=== PATIENT | male | born 1970 | race Caucasian/White ===

== ENCOUNTER 2019-05-31 06:35 | Observation (INO) ==
--- NOTE | 2019-05-31 07:46 | History & Physical Bridge Note ---
Date of Service May 31, 2019 History & Physical Bridge Note I have examined the patient, reviewed the History & Physical and in the interval since the performance of the History & Physical I have noted the following changes of clinical significance: no changes noted I have explained the risk benefit and intent of the procedure to the patient and he is agreeable to proceed.
--- NOTE | 2019-05-31 07:52 | Anesthesiology Consultation ---
Date of Service May 31, 2019 History Surgery Operation Date: 05/31/19 08:00 Proposed Procedures p Left Heart Catheterization - Celso White, Height/Weight Height: 5 ft 10 in Weight: 116.7 kg Allergies Allergy/AdvReac Type Severity Reaction Status Date / Time No Known Allergies Allergy Unverified 05/31/19 06:41 Medications Home Medications Medication Instructions Recorded Confirmed Last Taken citalopram [Celexa] 40 mg PO DAILY 05/31/19 05/31/19 Unknown ketoconazole 1 applic TOPICAL BID 05/31/19 05/31/19 Unknown lisinopril-hydrochlorothiazide 1 tab PO DAILY 05/31/19 05/31/19 Unknown Social History Smoking Status: Former smoker Hx Alcohol Use: Yes Alcohol type: beer alcohol intake frequency: a few times a week Hx Substance Use: No substance use type: does not use Physical Exam Vital Signs Last Vital Signs Temp 36.9 C 05/31/19 07:05 Pulse 59 L 05/31/19 07:05 Resp 16 05/31/19 07:05 BP 122/79 05/31/19 07:05 Pulse Ox 96 05/31/19 07:05 General: no acute distress and stated age Head: normocephalic, no masses, lesions, tenderness or abnormalities Eyes: conjunctiva are pink and non-injected, sclera clear Neck: supple, no adenopathy, no bruits, normal jugular venous pulse, no hepatojugular reflux Chest: normal shape and normal respiratory effort Lungs: clear to auscultation and percussion Cardiac Exam: - regular rate & rhythm, no murmurs gallops or rubs - normal S1, normal S2 Pulses: 2(+) throughout Abdomen: abdomen soft, non-tender, no abnormal masses and no hepatosplenomegaly Musculoskeletal: no gait disturbance, no joint inflammation, no deforming arthritis Extremities: no edema and no cyanosis Neuro: grossly normal exam Testing Electrocardiogram Findings: + NSR @ Chest X-Ray Findings: + NAD
[2019-05-31] MEDS ORDERED: NiCARDipine HCL INJ 2.5 MG/ML 10 ML AMP ONE (07:58)
[2019-05-31] MEDS ORDERED: HEPARIN (PORCINE) 1000 UNIT/ML 10 ML (CATH LAB USE ONLY) ONE ×2 (07:58→09:20)
[2019-05-31] MEDS ORDERED: fentaNYL citrate 100 MCG/2 ML VIAL ONE (07:58)
[2019-05-31] MEDS ORDERED: MIDAZOLAM HCL 1 MG/ML 2ML VIAL ONE ×2 (07:59→08:27)
[2019-05-31] MEDS ORDERED: SODIUM CHLORIDE 0.9% 1000ML 1,000 ML IV SCH ×2 (08:00→10:15)
[2019-05-31] MEDS ORDERED: NITROGLYCERIN/D5W 100MCG/ML 20ML SYR ONE (08:00)
--- NOTE | 2019-05-31 08:51 | Cardiac Catheterization ---
Date of Service May 31, 2019 Cardiac Cath Report Cardiac Cath Report Procedure: 1. Left heart catheterization 2. Coronary angiography 3. Left ventriculogram History: This is a 48-year-old male patient with a history of neck and chest discomfort who underwent an exercise stress echocardiogram. The stress echocardiogram portion study was negative but the EKG portion of the study showed significant ST segment depressions suggesting ischemia. The patient was referred for heart catheterization. Procedure summary: After informed consent was obtained the patient was taken to the cardiac catheterization lab where he was prepped and draped in the usual manner for a right transradial approach. Preformed 5 [place] diagnostic catheters were utilized for the coronary angiograms. A 5 [place] pigtail catheter was utilized for the left ventriculogram and left heart pressures. Following the procedure the patient underwent coronary intervention and was admitted in stable condition. ACC data: Start time 8:07 AM End time 8:30 AM Opening aortic pressure 98/69 Closing aortic pressure 101/75 Left ventricular pressure 103/4 Sedation 2 mg intravenous Versed IV fluid 49 cc normal saline Contrast Optiray 80 cc Fluoroscopy time 2.9 minutes Radiation 1071 mGy DAP 10,391 milligrays per meter squared AUC score 9 Right dominant system Coronary angiography: Selective injections of the left coronary artery revealed the left main trunk to be widely patent. The left circumflex artery consist mainly of a large lateral marginal branch which is widely patent. In the proximal segment of the LAD there is a long area of 80% stenoses and then a 50 to 60% eccentric stenosis in the distal mid LAD. Selective injections of the right coronary artery revealed to be dominant. The right coronary artery is widely patent. Left ventriculogram: The left ventricle is of normal size with normal systolic function. The mitral valve is competent. The aortic root and ascending aorta have normal morphology. Summary: The patient has single-vessel coronary artery disease with a long 80% stenosis of the proximal LAD and then in the mid to distal portion of the LAD of 50 to 60% stenoses. The remainder the LAD is patent. The left circumflex and right coronary arteries are widely patent. Recommendations: Recommendations are for review by interventional cardiology for stent placement.
[2019-05-31] MEDS ORDERED: CLOPIDOGREL BISULFATE 300 MG TAB ONE (09:22)
[2019-05-31] MEDS ORDERED: ADENOSINE IV SOLN 3 MG/ML 20 ML VIAL IV ONE (09:30)
[2019-05-31] MEDS ORDERED: NITROGLYCERIN SL 0.4 MG/TAB TAB SL PRN (10:04)
[2019-05-31] MEDS ORDERED: ONDANSETRON INJ 2 MG/ML 2 ML VIAL IV PRN (10:04)
[2019-05-31] MEDS ORDERED: ACETAMINOPHEN 325 MG TAB PO PRN (10:04)
--- NOTE | 2019-05-31 10:10 | Post Anesthesia Assessment ---
Date of Service May 31, 2019 Post Sedation Assessment Vital Signs Temp Pulse Resp BP Pulse Ox 05/31/19 10:00 54 L 16 126/93 97 05/31/19 07:05 98.4 F 59 L 16 122/79 96 Recovery Score Activity: Moves 4 extremities Respiration: Deep Breath/Cough Circulation: +/-20% PreAnes Value Consciousness: Fully Awake Oxygen Saturation: > 92% On Room Air Post Anesthesia Score: 10 Discharge Sedation Level of Care: Fast Track Phase II Post Sedation Plan On clinical assessment, the patient appears to have tolerated the sedation without complications. Patient is recovering as anticipated. Patient will continue to be monitored by nursing and may be discharged when sedation discharge criteria are met per below protocol. Upon Completions of procedure up to 15 minutes continue every 5 minute vital signs and the P.A.R. score; then discharge to a Phase I or Fast Track to Phase II per the following guidelines: * Discharge Patient to appropriate Phase II area if PAR is 8 or greater or retu rn to pre- procedure baseline. The post - procedure orders will be as directed. * If PAR score is less than 8 or not return to pre-procedure baseline then patient will follow Phase I monitoring till PAR is reached for Phase II. The Phase I may be done in procedure room or may call to secure a Phase I area. * If naloxone or flumazenil are used for reversal, hold in Phase I for continued monitoring from when last reversal dose was given for a minimum of 60 minutes or longer pending the nurse and/or physician discretion of patient condition before discharge to Phase II. Please call the Sedation Physician to re-evaluate and complete post-note for discharge to Phase II area. Do NOT discharge from procedure sedation or Phase 1 until post- sedation evaluation note is complete by procedure /sedation MD Sedation Discharge Instructions to be given to the patient at discharge to home.
--- NOTE | 2019-05-31 10:19 | Cardiac Catheterization ---
ACC Data: Bolt Sorter Cardiac Status Clinical evaluation leading to the procedure CAD Presenation: Positive Stress Test Anginal Classification: CCS III Heart Failure: No Cardiogenic Shock within 24 Hours: No Cardiac Arrest within 24 Hours: No Imaging Studies Past 6 Months: Yes Stress Studies Past 6 Months: Yes Stress Echocardiogram: Yes - Indeterminant Diagnostic Physicians Name: Carlos Diane MD Closure Device Percutaneous Entry Location: Radial Closure Device: Radial Band Recommendations: PCI without planned CABG PCI Indication: + Stress Test Lesion Segment Name: Proximal LAD Culprit Artery: Yes Stenosis Prior to Rx (%): 80 Chronic Total Occlusion: No IVUS: No FFR: No Pre-Procedure MITZI Flow: 2 Previously Treated Lesion: No Lesion Complexity: Non-High/Non-C Lesion Length (mm): 22 Thrombus Present: No Bifurcation Lesion: No Guidewire Across Lesion: Stenosis Post-Procedure (%): 0 Post-Procedure MITZI Flow: 3 Devices(s) Deployed: Yes Yes Lesion #2 Segment Name: Mid LAD Culprit Artery: No Stenosis Prior to Rx (%): 60-70 Chronic Total Occlusion: No IVUS: No FFR: Yes Ratio: less than or equal to 0.75% Pre-Procedure MITZI Flow: 2 Previously Treated Lesion: No Lesion Complexity: Non-High/Non-C Lesion Length (mm): 12 Thrombus Present: No Bifurcation Lesion: No Guidewire Across Lesion: Yes Stenosis Post-Procedure (%): 0 Post-Procedure MITIZ Flow: 3 Devices(s) Deployed: Yes Intraprocedure Events Significant Disection: No Perforation: No Cardiac Cath Procedure Full Procedure Date May 31, 2019 Pre-Procedure Diagnosis Pre-Procedure Diagnosis: Angina and Positive Stress Test AUC Score AUC Score: 7 Post-Procedure Diagnosis Post-Procedure Diagnosis: Severe CAD and Successful PCI Procedure(s) Performed Procedure(s) Performed: Drug Eluting Stent and Fractional Flow [place] Reinforcing Bar Setter Carlos Diane MD Lubrication Servicer(s) Dang Estimated Blood Loss Estimated Blood Loss: 15 Medication(s) Medication(s): Clopidogrel, Fentanyl, Heparin, Lidocaine 1%, Nicardipine, Nitroglycerin and Versed Summary of Findings Indication: Abnormal stress test, angina Access: 6 Fr slender right radial artery Catheters: EBU 3.5 guide Findings: For full details of patient's coronary angiography please cath report dictated by Dr. White. Briefly, patient found to have severe single vessel disease involving proximal, mid LAD. Decision to proceed with PCI. -- PCI -- Antithrombotic therapy: Heparin, clopidogrel Procedure: Left main cannulated with EBU 3.5 guide BMW wire passed across lesion into distal vessel Proximal LAD lesion predilated with 2.5 compliant balloon Dilated lesion stented with 3.5 x 26 mm Chace drug-eluting stent Stent post-dilated with 3.75 noncompliant balloon IC vasodilators administered for spasm Moderate to severe residual disease in mid LAD Further evaluated with FFRACIST FFR catheter placed into distal LADPd/Pa 0.91, FFR 0.74 2.75 x 15 mm [place] drug-eluting stent placed across mid LAD lesion, postdilated with stent balloon Post procedure MITZI 3 flow, stents well expanded with minimal residual stenosis and no apparent cardiac complications. Arterial Closure: TR band Summary: 1. Severe single vessel coronary artery disease -80% proximal LAD 60 to 70% mid LAD (FFR 0.74 after proximal LAD PCI) 2. Successful PCI of proximal LAD with single drug-eluting stent (3.5 x 26 mm Chace; postdilated with 3.75 NC). 3. Successful PCI of mid LAD with single drug-eluting stent (2.75 x 15 mm Perry[place]). Recommendations: To PCU for continued monitoring Loaded with clopidogrel 600 mg in terrazzo laborer Continue dual-antiplatelet therapy for at least 6-month Continue statin, and ASCVD risk factor modification Consult cardiac Rehab Hemodynamics Rest Ao:: 108/71/80 Final Ao: 99/66/82 LV: Recommendations Recommendations: PCI without planned CABG Specimens Specimens: None Radiation Exposure (mGy) 2986 Contrast (mls) 180 Fluids (cc crystalloids) Fluids (cc crystalloids): 200 Drains Drains: None Anesthesia Moderate Procedural Complication(s) None Disposition PCU I attest to the content of the Intraoperative Record and any orders documented therein. Any exceptions are noted below. [employer] Card Cath Procedure Codes Cardiac Catheterization Procedure 1: Cardiovascular Cath Procedures: 74666 (Doppler) Pressure Wire Moderate Sedation Procedure 1: Sedation/Anesthesia: 01236 Mod Sedation by the same physician;Init15 Min Child Age 5 & Up Procedure 2: Sedation/Anesthesia: 98322 Mod Sedation by the same physician; Ea [id number] Minutes Stenting Procedure 1: Cardiovascular Stent Procedures: 39752 Perc transcatheter placement of intracoronary stent(s), with ang PG Care Time/CCT Total # of Minutes Spent Total Time Spent with Patient: Total time spent is greater than 50% in coordination of care (as documented) at patient's floor/unit and/or counseling patient:
[2019-06-01 07:33] LABS: Basophils # (auto) 0.02 K/uL (0-0.2); Basophils % (auto) 0.3 %; Eosinophils % (auto) 1.5 %; Hematocrit (blood only) 42.9 % (42-52); Hemoglobin 15.2 g/dL (14.0-18.0); Immature Granulocytes # (auto) 0.03 K/uL (0.00-0.02); Immature Granulocytes % (auto) 0.4 %; Lymphocytes # (auto) 1.35 K/uL (1.2-3.4); Lymphocytes % (auto) 19.7 %; Mean Corpuscular Hemoglobin 32.5 pg (25-34); Mean Corpuscular Hgb Conc 35.4 g/dL (32-36); Mean Corpuscular Volume 91.9 fL (80-100); Mean Platelet Volume 10.1 fL (7.4-10.4); Monocytes # (auto) 0.63 K/uL (0.11-0.59); Monocytes % (auto) 9.2 %; Neutrophils # (auto) 4.72 K/uL (1.4-6.5); Neutrophils % (auto) 68.9 %; Platelet Count 201 K/uL (130-400); RDW Standard Deviation 43.5 fL (36.4-46.3); Red Blood Count 4.67 M/uL (4.7-6.1); White Blood Count 6.85 K/uL (4.8-10.8)
[2019-06-01 08:00] LABS: BUN Creatinine Ratio 15.7 (10-20); Calcium 8.9 mg/dl (8.5-10.1); Creatinine Clr Calc Pharmacy 117.3 ml/min; Est GFR (African American) 106.4; Est GFR (Non-African American) 91.8; Potassium 3.6 mmol/L (3.5-5.1)
[2019-06-01] MEDS ORDERED: CITALOPRAM 40 MG TAB PO SCH (09:00)
[2019-06-01] MEDS ORDERED: ATORVASTATIN 40 MG TAB PO SCH (09:00)
[2019-06-01] MEDS ORDERED: LISINOPRIL/HCTZ 20/25MG 1 TAB PO SCH (09:00)
[2019-06-01] MEDS ORDERED: CLOPIDOGREL BISULFATE 75 MG TAB PO SCH (09:00)
[2019-06-01] MEDS ORDERED: ASPIRIN 81 MG ECTAB PO SCH (09:00)
--- NOTE | 2019-06-01 09:01 | Cardiology Progress Note ---
Date of Service June 01, 2019 Assessment & Plan (1) CAD (coronary artery disease), [place] coronary artery: (2) Status post insertion of drug-eluting stent into left anterior descending (LAD) artery: (3) Dyslipidemia, goal LDL below 70: (4) HTN (hypertension): 48-year-old patient admitted for elective cardiac catheterization due to abnormal stress testing. Severe tandem LAD stenosis noted. 2 drug-eluting stents implanted without complication. Discussed importance of continuing dual antiplatelet therapy for minimum of 6 months post drug-eluting stent implantation. High intensity statin therapy added. Continue Zestoretic as previously ordered. Outpatient cardiology follow-up scheduled. Post cardiac catheterization activity restrictions discussed. Subjective Patient seen and examined at the bedside. Feeling much better today. States "I feel like I am 20 years younger". No recurrent chest discomfort or shortness of breath. No dysrhythmias on telemetry. Denies any wrist discomfort or bruising. Tolerated his a.m. meal and medications. Offers no complaints. Review of Systems Review of Systems: All systems reviewed & are unremarkable except as noted in HPI & below Physical Exam Constitutional: well developed, well nourished and + obese Respiratory: normal respiratory effort, lungs clear to auscultation Auscultation: no crackles, no rales, no rhonchi and no wheezes Cardiovascular: RRR, no murmur, no edema Vessels: radial pulses present Gastrointestinal (Abdomen): Inspection/Auscultation: abdomen normal to inspection and normal bowel sounds; abdomen not distended Percussion/Palpation: abdomen soft; abdomen nontender, no guarding and abdomen not rigid Musculoskeletal: no cyanosis or clubbing, extremities motor strength 5/5 Skin: no rashes, warm and dry Neurologic: moves all extremities; no focal motor deficits Psychiatric: A+Ox3, euthymic affect Results & Data Vital Signs (Past 12 Hours) Vital Signs Temp Pulse Pulse Pulse Resp BP Pulse Ox 06/01/19 07:54 36.5 C 61 18 136/63 98 06/01/19 03:15 36.6 C 60 19 96/57 L 97 05/31/19 23:55 60 05/31/19 22:59 36.5 C 58 L 20 95/55 L 97 (1) CAD (coronary artery disease), [place] coronary artery [place] vs. transplanted heart: [place] heart Associated angina: with unstable angina Qualified Code(s): I25.110 - Atherosclerotic heart disease of [place] coronary artery with unstable angina pectoris (2) HTN (hypertension) Hypertension type: essential hypertension Qualified Code(s): I10 - Essential (primary) hypertension
--- NOTE | 2019-06-01 09:09 | Discharge Summary ---
Date of Service June 01, 2019 Admission HPI Per Admitting Provider Patient with unstable angina, abnormal stress testing leading to diagnostic cardiac catheterization 05/31/2019. 2 drug-eluting stents implanted left anterior descending artery without complication 05/31/2019. Principal Diagnosis Unstable angina Abnormal stress testing Discharge Exam Constitutional well developed, well nourished and + obese Respiratory normal respiratory effort, lungs clear to auscultation Auscultation: no crackles, no rales, no rhonchi and no wheezes Cardiovascular RRR, no murmur, no edema Vessels: radial pulses present Gastrointestinal (Abdomen) Inspection/Auscultation: abdomen normal to inspection and normal bowel sounds; abdomen not distended Percussion/Palpation: abdomen soft; abdomen nontender, no guarding and abdomen not rigid Musculoskeletal no cyanosis or clubbing, extremities motor strength 5/5 Skin no rashes, warm and dry Neurologic moves all extremities; no focal motor deficits Psychiatric A+Ox3, euthymic affect Discharge Data Allergies Allergy/AdvReac Type Severity Reaction Status Date / Time No Known Allergies Allergy Unverified 05/31/19 06:41 Consultations 05/31/19 10:06 Consult Cardiac Rehabilitation Routine Procedures Performed Operation Date: 05/31/19 08:00 Actual Procedures s Cineradiography w/Routine Exam - Celso White, p Cath, Left with Cors and Vent - Celso White, DO s Drug Eluting Stent SGl Vessel - Don Diane MD s Fraction Flow [place] SGL Ves - Don Diane MD Ordered Studies 05/31/19 06:57 CL Cath Imgs for PACS use only Routine Hospital Course (1) CAD (coronary artery disease), [place] coronary artery: (2) Status post insertion of drug-eluting stent into left anterior descending (LAD) artery: (3) Dyslipidemia, goal LDL below 70: (4) HTN (hypertension): 48-year-old patient admitted for elective cardiac catheterization due to abnormal stress testing. Severe tandem LAD stenosis noted. 2 drug-eluting stents implanted without complication. Discussed importance of continuing dual antiplatelet therapy for minimum of 6 months post drug-eluting stent implantat ion. High intensity statin therapy added. Continue Zestoretic as previously ordered. Outpatient cardiology follow-up scheduled. Post cardiac catheterization activity restrictions discussed. Total Time Total Time Spent Total Time Spent (In Minutes): 30 Total Time Includes: Examination of the Patient, Discharge Planning and Medication Reconciliation Discharge Plan Discharge Items Patient Disposition: Home - Self-Care Reason For Visit: Chest Pain and Abnormal Stress Test Discharge Diagnosis: Coronary artery disease with unstable angina status post drug-eluting stent placement to the left anterior descending artery x2. Activity: Per Instructions section Non-emergency contact: Supervisor Diagnostic Call non-emergency contact if: you have any medication questions, your pain is unusual for you and your pain is concerning for you Follow-up/Referrals: Vijay Poole MD [Primary Care Provider] - Diet: Heart Healthy Addtl Attending Provider Instructions: ACTIVITY RECOMMENDATIONS: It is common to feel weak and fatigue for a few days. * Do not drive or operate any motorized equipment for the next three days. * Limit stair usage (2 or 3 trips a day only) for the next three days. * Do not lift anything heavier than 10 pounds for the next three days. * Do not engage in vigorous exercise or any sports for the next five days. * You may shower the day after your procedure, but do not immerse the area for three days. Cleanse the site gently with soap and water. SPECIAL CARE INSTRUCTIONS: * You may replace the pressure dressing or band-aid the morning after the procedure. * After your procedure, it is normal to have a small bruise or small lump at the site. Examine your site daily for any change in the bruise or lump, redness, swelling, drainage or numbness. Notify your doctor if any change. BLEEDING: * If there is a small amount of bleeding at the site, lie down and apply firm pressure with a clean cloth for ten minutes. When the bleeding stops, lie quietly keeping the procedure limb straight for six hours. Notify your doctor as soon as possible. * If the bleeding does not stop after ten minutes or if there is a large amount of bleeding or spurting, call 911 immediately. Continue to lie down and hold firm pressure until help arrives. SKIN IRRITATION: * You may experience some redness and/or swelling in the area where radiation was administered. If any skin irritation occurs, please contact your family physician. FOLLOW UP VISIT: Keep any scheduled doctor appointments. Pending Studies at Discharge: No Stand-Alone Forms: [employer], Smoking Cessation, Work/School Release (Inpt) Medications and DC Order Prescriptions: New atorvastatin 40 mg Tablet 80 mg PO QAM Qty: 34 RF: 4 clopidogrel 75 mg Tablet 75 mg PO QAM Qty: 34 RF: 6 aspirin [Ecotrin Low Strength] 81 mg Tablet,Delayed Release (Dr/Ec) 81 mg PO QAM Qty: 34 RF: 4 nitroglycerin 0.4 mg tablet, sublingual 0.4 mg sublingual DIRECTED 30 Days Qty: 30 RF: 4 Continued citalopram [Celexa] 40 mg Tablet 40 mg PO DAILY RF: 0 lisinopril-hydrochlorothiazide 20-25 mg Tablet 1 tab PO DAILY RF: 0 ketoconazole 2 % Cream 1 applic TOPICAL BID RF: 0 Discharge Orders: Discharge Order (Routine); Ordered 06/01/19 Ordered By: Yeison Herrera Admission Data Admit Date/Time: 05/31/19 10:07 Attending Provider: Celso White Admit Provider: Yeison Herrera Primary Care Provider: Vijay Poole
[2019-06-01] MEDS ORDERED: ENOXAPARIN INJ 40 MG/0.4 ML SYR SQ SCH (10:15)
--- NOTE | 2019-06-01 16:37 | Electrocardiogram Report ---
Test Reason : Blood Pressure : / mmHG Vent. Rate : 057 BPM Atrial Rate : 057 BPM P-R Int : 176 ms QRS Dur : 088 ms QT Int : 438 ms P-R-T Axes : 033 067 044 degrees QTc Int : 426 ms Sinus bradycardia Otherwise normal ECG No previous ECGs available Confirmed by Seamus Martínez ([id number]) on 06/01/2019 4:36:47 PM Referred By: Celso White Confirmed By:Seamus Martínez
== END 2019-06-01 10:09 | disposition home or self-care (01) ==
LOC: 2S 06:35 → CC 06:35